=== PATIENT | female | born 1975 | race African-American/Black ===

== ENCOUNTER 2019-11-03 14:38 | Outpatient (CLI) | payer OTHER, SELFPAY ==
--- NOTE | ~2019-11-03 | CT_ITS ---
EXAMINATION: CT abdomen pelvis wo con DATE: 11/03/2019 14:59 INDICATION: Inflammatory bowel disease TECHNIQUE: Computed tomography (CT) of the abdomen and pelvis was performed without intravenous contr ast. The dose-length product was 404.62 mGy-cm. Automated exposure control and iterative reconstructi on technique were employed. COMPARISON: None. FINDINGS: Lung bases are unremarkable. No significant pleural or pericardial effusion. There are bila teral breast implants. Heart size normal. The liver, spleen, pancreas, adrenal glands and kidneys are unremarkable. Gallbladder is present. The re is an umbilical hernia containing fat. No significant vascular abnormality. There are pelvic calci fications, consistent with phleboliths. No bowel obstruction. No free air. Small amount of free fluid in the pelvis, likely physiologic. No acute osseous abnormality. No evidence for acute fracture or t raumatic malalignment. IMPRESSION: 1. No acute abnormality. Reviewed, dictated and finalized at location A. IMPRESSION: 1. No acute abnormality.
== END 2019-11-03 14:39 | disposition home or self-care (01) ==
LOC: ANHIMG 14:41
PROVIDERS: PCP Family Medicine; Visit Provider Family Medicine
DX: K52.9 Noninfective gastroenteritis and colitis, unspecified (principal)
CPT/HCPCS: 74176

== ENCOUNTER 2019-12-11 12:56 | Outpatient (CLI) | payer OTHER, SELFPAY ==
--- NOTE | ~2019-12-11 | US_ITS ---
EXAMINATION: US pelvic complete w TV DATE: 12/11/2019 13:34 INDICATION: Pelvic pain Comparison:Ultrasound dated 08/26/2017 TECHNIQUE: Multiple transabdominal and endovaginal sonographic images of the pelvis performed. FINDINGS: The uterus measures 8.4 x 6.1 x 6.6 cm. There is a fibroid at the fundus of the uterus ulises uring 4 x 2.9 x 3.1 cm The endometrial complex measures 9.5 mm. The right ovary measures 3.1 x 2.4 x 1.9 cm and the left ovary measures 2.9 x 1.9 x 1.3 cm. There ar e small follicles in each ovary. There is no free fluid in the pelvis. There are no abnormal masses seen on either side. IMPRESSION: 1. 4 cm uterine fibroid. Otherwise, unremarkable pelvic ultrasound. Reviewed, dictated and finalized at location A.
== END 2019-12-11 12:57 | disposition home or self-care (01) ==
LOC: ANHIMG 12:59
PROVIDERS: PCP Family Medicine; Visit Provider Obstetrics & Gynecology
DX: R10.2 Pelvic and perineal pain (principal); D25.9 Leiomyoma of uterus, unspecified
CPT/HCPCS: 76830; 76856